=== PATIENT | female | born 1960 | race Caucasian/White ===

== ENCOUNTER 2021-10-25 15:11 | Emergency (ER) | payer OTHER ==
[2021-10-25] MEDS ORDERED: TOBREX5 ML EYEBOTH (16:31)
== END 2021-10-25 16:40 | disposition home or self-care (01) ==
LOC: FER 15:11
DX: H10.023 Other mucopurulent conjunctivitis, bilateral (principal); E11.9 Type 2 diabetes mellitus without complications; I10 Essential (primary) hypertension; E78.5 Hyperlipidemia, unspecified; Z79.82 Long term (current) use of aspirin; Z79.84 Long term (current) use of oral hypoglycemic drugs; Z79.899 Other long term (current) drug therapy; Z88.0 Allergy status to penicillin
CPT/HCPCS: 99283